=== PATIENT | male | born 1965 | race Caucasian/White ===

== ENCOUNTER 2017-07-27 09:32 | Emergency (ER) | payer SELFPAY ==
[~2017-07-27] VITALS: Ht 185.4 cm; Wt 146.0 kg
[~2017-07-27 09:32] MED LIST: CALC-680 PO; CLON0.2T PO; HYDR-3240 PO; HYDR25TA6 PO; LEVO125T5 PO; LORA0.5T PO; METO25TA35 PO; ONDA4TAB7 PO
[2017-07-27] MEDS ORDERED: LIOT25TA3 PO (09:45)
[2017-07-27 10:37] LABS: BASOPHILS # (AUTO) 0.02 x10^3/uL (0-0.1); BASOPHILS % (AUTO) 0 % (0-1); EOSINOPHILS # (AUTO) 0.04 x10^3/uL (0-0.4); EOSINOPHILS % (AUTO) 0 % (1-7); LYMPHOCYTES # (AUTO) 1.36 x10^3/uL (1-3.4); LYMPHOCYTES % (AUTO) 13 % (22-44); MD NO; MEAN CORPUSCULAR HEMOGLOBIN 29.9 pg (27.5-34.5); MEAN CORPUSCULAR HGB CONC 33.7 g/dL (33.2-36.2); MEAN CORPUSCULAR VOLUME 88.8 fL (81-97); MEAN PLATELET VOLUME 8.2 fL (7.4-10.4); MONOCYTES # (AUTO) 0.27 x10^3/uL (0.2-0.8); MONOCYTES % (AUTO) 3 % (2-9); NEUTROPHILS # (AUTO) 8.73 x10^3/uL (1.8-6.8); NEUTROPHILS % (AUTO) 84 % (42-75); PLATELET COUNT 164 x10^3/uL (130-400); RED CELL DISTRIBUTION WIDTH 16.6 % (9.4-14.8)
[2017-07-27 10:48] LABS: ALBUMIN 4.3 g/dL (3.4-5.0); ANION GAP 8 mmol/L (5-15); CALCIUM 9.1 mg/dL (8.5-10.1); CHLORIDE 108 mmol/L (98-107); CREATININE 1.25 mg/dL (0.7-1.3)
[2017-07-27] MEDS ORDERED: LIDOCAINE-MPF 1%, 5ML ONE (11:56)
[2017-07-27] MEDS ORDERED: LIDOCAINE-MPF 1%, 5ML INFIL ONE (12:00)
[2017-07-27 13:20] VITALS: BP 150/90
== END 2017-07-27 13:24 | disposition home or self-care (01) ==
LOC: ED 10:32
DX: L02.612 Cutaneous abscess of left foot (principal); I10 Essential (primary) hypertension; Z88.0 Allergy status to penicillin; Z91.14 Patient's other noncompliance with medication regimen
CPT/HCPCS: 28192; 36415; 80048; 82040; 85025; 93005; 99285